=== PATIENT | male | born 1995 | race Hispanic/Latino ===

== ENCOUNTER 2019-08-22 17:13 | Emergency (ER) | payer SELFPAY ==
[2019-08-22 17:14] VITALS: BP 133/77; PULSE 88; RESP 16; TEMP 36.7; O2SAT 99; BMI 27.3
[2019-08-22 17:44] LABS: Mucous, Urine 0 SEEN /hpf (<or=2+); Red Blood Cells-Urine 0 SEEN /hpf (0-5); Squamous Epithelial Cells - UA 0 SEEN /hpf (0-5)
[2019-08-22 17:57] LABS: Color, Urine Yellow (Yellow); Glucose, Dipstick Normal (Normal); Ketone-Dipstick Negative (Negative); Leukocyte Esterase-Dipstick 500 /ul (Negative); Nitrite-Dipstick Negative (Negative); Occult Blood-Urine 10 /ul (Negative); Protein-Dipstick Negative (Negative); Specific Gravity, Urine 1.015 (1.002-1.030); Urine Bilirubin Dipstick Negative (Negative); Urine Clarity Cloudy (Clear); Urine Urobilinogen 4 mg/dl (Normal); Urine pH 6.5 (5.0 - 8.0)
[2019-08-22] MEDS: Ceftriaxone 500 MG Vial 250 MG IM (17:58)
[2019-08-22] MEDS: Azithromycin 250 MG Tablet 1000 MG PO (17:58)
[2019-08-22 18:10] LABS: Bacteria RARE /hpf (None Seen); White Blood Cells 25-50 SEEN /hpf (0-5)
--- NOTE | 2019-08-22 18:17 | ED.DCSUM_ITS ---
- ER Visit Summary Date of Service: 08/22/19 Chief Complaint: Penile discharge and dysuria History of Present Illness: The patient is a 24 M no primary care physician. He reports that he had sex with a female friend last week without a condom. He states that he has had penile discharge as well as dysuria for the past 3 days. He denies any fever, nausea, vomiting, or other constitutional symptoms. Physical Examination: Vitals: Stable. Afebrile. General: Well-nourished and well-developed. Head: Normocephalic atraumatic. Neck: Supple, no lymphadenopathy. No JVD. Nontender. Cardiovascular: Regular rate and rhythm. No murmurs. Respiratory: No respiratory distress. Clear to auscultation bilaterally. Abdominal: Soft, nontender, nondistended, normal bowel sounds. No guarding, rebound, or peritoneal signs. : Normal uncircumcised male. No epididymal tenderness or testicular tenderness bilaterally. Back: Nontender. Extremities: Nontender, no edema. Skin: Normal color, no rash. Neurologic: Alert and oriented ?3. Cranial nerves II through XII are intact. Normal strength and sensation. Psych: Normal affect. Test Results: UA shows 25-50 white blood cells. It is nitrite negative. Gonorrhea is positive. Chlamydia is negative. Emergency Department Course and Treatment: Patient was treated with Rocephin IM and Zithromax p.o. He was instructed not to have intercourse with her again until after she has been treated. Treatment Plan: Patient will be discharged with instructions to follow-up with the [facility] in 3 to 5 days if not improving. Return to the emergency department for any worsening symptoms. Disposition: To home in improved and stable condition. Impression: 1. Gonococcal urethritis. This note was generated with [employer] software. It may contain incorrect words, spelling, and punctuation that were not noted in review of the chart prior to signing ED Disposition - Plan for ED Patient: Disposition: Home or Assisted Living Instructions: ED STI Male Treated Referrals: [facility] [NON-STAFF] - 3-5 Days Print Language: [place]
[2019-08-22 19:42] LABS: Chlamydia Trachomatis by PCR Negative (Negative); Neisserai gonorrhoeae by PCR Positive (Negative); Probe Check PASS
== END 2019-08-22 18:38 | disposition home or self-care (01) ==
LOC: ED 18:34
PROVIDERS: Emergency Provider Emergency Medicine
DX: A54.01 Gonococcal cystitis and urethritis, unspecified (principal); Z72.0 Tobacco use
CPT/HCPCS: 81001; 87491; 87591; 96372; 99283